=== PATIENT | female | born 1950 | race African-American/Black ===

== ENCOUNTER 2025-07-31 20:05 | Inpatient (IN) | payer OTHER, MEDICAID, MEDICARE ==
[~2025-07-31] VITALS: Ht 165.1 cm; Wt 104.8 kg
[2025-07-31 20:18] VITALS: O2SAT 95
[2025-07-31 21:15] LABS: BASOPHILS % 0.2 % (0.0-2.0); EOSINOPHILS % 0.4 % (0.0-5.0); HEMATOCRIT. 40.5 % (36.0-48.0); HEMOGLOBIN. 13.6 g/dL (12.0-16.0); LYMPHOCYTES % 11.3 % (20.0-50.0); MEAN PLATELET VOLUME 9.1 fl (7.4-10.4); MONOCYTES % 5.3 % (2.0-8.0); NEUTROPHILS % 82.8 % (40.0-76.0); PLATELET 233 x1000/uL (130-400); RED BLOOD CELL COUNT 4.44 mill/uL (4.2-5.4); RED CELL DISTRIBUTION WIDTH 14.2 % (11.6-14.6)
[2025-07-31 21:37] LABS: CREATININE 0.8 mg/dL (0.6-1.0); TROPONIN I HIGH SENSITIVITY < 4 ng/L (3.0-34); UREA NITROGEN BLOOD 14 mg/dL (9-23)
[2025-07-31 21:38] LABS: ASPARTATE AMINOTRANSFERASE 55 IU/L (<34)
[2025-07-31 21:39] LABS: BILIRUBIN DIRECT 0.2 mg/dL (<=3.0); BILIRUBIN TOTAL 0.7 mg/dL (0.1-1.0); PROTEIN TOTAL 7.6 g/dL (6.0-8.3)
[2025-07-31] MEDS: ONDANSETRON HCL 4MG/2ML INJ IV ONE (22:08)
[2025-07-31] MEDS: METOCLOPRAMIDE HCL 10MG/2ML VIAL IV ONE (22:08)
[2025-07-31] MEDS: MORPHINE SULFATE 4 MG/ML INJ (FOR IV/IM USE) IV ONE (22:08)
[2025-07-31] MEDS: SODIUM CHLORIDE 0.9% 1,000 ML IV ONE (22:11)
[2025-08-01 00:02] LABS: CLARITY URINE CLOUDY (CLEAR); COLOR URINE YELLOW (YELLOW); GLUCOSE URINE NEGATIVE (NEGATIVE); KETONES URINE TRACE (NEGATIVE); LEUKOCYTE ESTERASE URINE NEGATIVE (NEGATIVE); NITRITE URINE NEGATIVE (NEGATIVE); OCCULT BLOOD URINE NEGATIVE (NEGATIVE); PH URINE 6.0 (4.5-8.0); PROTEIN URINE NEGATIVE (NEGATIVE); SPECIFIC GRAVITY URINE 1.024 (1.005-1.030); UROBILINOGEN URINE 0.2 E.U./dL (0.2-1.0)
[2025-08-01] MEDS ORDERED: ATOR40TA70 PO (00:41)
[2025-08-01] MEDS ORDERED: HYDR12.54 PO (00:41)
[2025-08-01] MEDS ORDERED: CLONIDINE 0.1MG TABLET PO PRN (00:45)
[2025-08-01] MEDS ORDERED: ACETAMINOPHEN 325MG TABLET PO PRN (00:45)
[2025-08-01] MEDS ORDERED: ONDANSETRON HCL 4MG/2ML INJ IV PRN (00:45)
[2025-08-01] MEDS ORDERED: IPRATROPIUM/ALBUTEROL 0.5-3(2.5)MG/3ML NEB HHN PRN (00:45)
[2025-08-01] MEDS ORDERED: MORPHINE SULFATE 10 MG/ML INJ (NOT FOR IM USE) IV PRN (00:45)
[2025-08-01] MEDS ORDERED: MAGNESIUM/ALUMINUM HYDROXIDE/SIMETHICONE 30ML UDC PO PRN (00:45)
[2025-08-01] MEDS: ACETAMINOPHEN 500MG TABLET PO ONE (00:57)
[2025-08-01] MEDS ORDERED: NALOXONE HCL 0.4MG/ML VIAL IV PRN (01:00)
[2025-08-01 01:57] LABS: BACTERIA URINE 2+; SQUAMOUS EPITHELIAL CELL URINE 3+ /lpf (RARE/1+); WBC URINE 0-2 /hpf (0-2)
[2025-08-01 01:58] LABS: RBC URINE 0-2 /hpf (0-2)
[2025-08-01 03:18] VITALS: BP 133/58; PULSE 84; RESP 16; TEMP 36.5292
[2025-08-01 08:00] VITALS: BP 145/83; PULSE 80; RESP 18; TEMP 36.4; O2SAT 98
[2025-08-01] MEDS: ATORVASTATIN CALCIUM 40MG TABLET PO SCH (09:32)
[2025-08-01] MEDS: THIAMINE HCL 100MG TABLET PO SCH (09:32)
[2025-08-01] MEDS: ENOXAPARIN 30MG/0.3ML SYR SUBCUT SCH (09:33)
[2025-08-01 10:39] LABS: *AMPHETAMINES SCREEN URINE NEGATIVE (NEGATIVE); *BARBITURATES SCREEN URINE NEGATIVE (NEGATIVE); *BENZODIAZEPINES SCREEN URINE NEGATIVE (NEGATIVE); *COCAINE SCREEN URINE NEGATIVE (NEGATIVE); CANNABINOID URINE SCREEN NEGATIVE (NEGATIVE); METHADONE URINE SCREEN NEGATIVE (NEGATIVE); OPIATES URINE SCREEN PRESUMPTIVE POSITIVE (NEGATIVE); PHENCYCLIDINE URINE SCREEN NEGATIVE (NEGATIVE)
[2025-08-01 10:40] LABS: ECSTASY MDMA SCREEN URINE NEGATIVE (NEGATIVE)
[2025-08-01] MEDS: HYDROCHLOROTHIAZIDE 12.5MG CAPSULE PO SCH (11:35)
[2025-08-01 12:00] VITALS: BP 134/41; PULSE 80; RESP 18; TEMP 36.8; O2SAT 97
[2025-08-01 12:35] LABS: HEPATITIS C AB NON REACTIVE (Neg) (Negative)
[2025-08-01 16:00] VITALS: BP 140/49; PULSE 81; RESP 18; TEMP 36.2; O2SAT 98
[2025-08-01 17:47] LABS: BASOPHILS % 0.3 % (0.0-2.0); EOSINOPHILS % 1.2 % (0.0-5.0); HEMATOCRIT. 37.3 % (36.0-48.0); HEMOGLOBIN. 12.3 g/dL (12.0-16.0); LYMPHOCYTES % 22.2 % (20.0-50.0); MEAN PLATELET VOLUME 9.5 fl (7.4-10.4); MONOCYTES % 9.0 % (2.0-8.0); NEUTROPHILS % 67.3 % (40.0-76.0); PLATELET 205 x1000/uL (130-400); RED BLOOD CELL COUNT 4.05 mill/uL (4.2-5.4); RED CELL DISTRIBUTION WIDTH 14.6 % (11.6-14.6)
[2025-08-01 17:49] LABS: CREATININE 0.8 mg/dL (0.6-1.0); UREA NITROGEN BLOOD 8 mg/dL (9-23)
[2025-08-01 17:51] LABS: PHOSPHORUS 3.0 mg/dL (2.5-4.9)
[2025-08-01 20:00] VITALS: BP 117/50; PULSE 74; RESP 18; TEMP 36.7; O2SAT 100
[2025-08-02] VITALS (7 sets, daily range): BP systolic 120–146; BP diastolic 51–66; PULSE 66–90; RESP 16–19; TEMP 36.2–37; O2SAT 94–98
[2025-08-02] MEDS: POTASSIUM CHLORIDE 20MEQ TABLET SR PO NR ×2 (03:54→18:41)
[2025-08-02 05:33] LABS: CREATININE 0.7 mg/dL (0.6-1.0); UREA NITROGEN BLOOD 7 mg/dL (9-23)
[2025-08-02 05:35] LABS: PHOSPHORUS 2.9 mg/dL (2.5-4.9)
[2025-08-02 05:37] LABS: T4 FREE 1.44 ng/dL (0.89-1.76)
[2025-08-02] MEDS ORDERED: LOPERAMIDE 2MG/15ML UDC PO PRN (06:15)
[2025-08-02 06:28] LABS: BASOPHILS % 0.3 % (0.0-2.0); EOSINOPHILS % 1.6 % (0.0-5.0); HEMATOCRIT. 37.6 % (36.0-48.0); HEMOGLOBIN. 12.5 g/dL (12.0-16.0); LYMPHOCYTES % 27.8 % (20.0-50.0); MEAN PLATELET VOLUME 9.7 fl (7.4-10.4); MONOCYTES % 10.2 % (2.0-8.0); NEUTROPHILS % 60.1 % (40.0-76.0); PLATELET 208 x1000/uL (130-400); RED BLOOD CELL COUNT 4.13 mill/uL (4.2-5.4); RED CELL DISTRIBUTION WIDTH 14.7 % (11.6-14.6)
[2025-08-02] MEDS ORDERED: VANCOMYCIN 125MG/2.5ML ORAL SYR PO SCH (11:00)
[2025-08-02] MEDS: VANCOMYCIN 125MG/2.5ML ORAL SYR PO SCH (13:00)
[2025-08-02] MEDS: ACETAMINOPHEN 325MG TABLET PO PRN (21:15)
[2025-08-03] VITALS: BP 129/64; PULSE 89; RESP 16; TEMP 36.6; O2SAT 97
[2025-08-03 04:00] VITALS: BP 137/59; PULSE 78; RESP 16; TEMP 36.6; O2SAT 95
[2025-08-03 08:00] VITALS: BP 137/47; PULSE 79; RESP 16; TEMP 36.6; O2SAT 96
[2025-08-03] MEDS ORDERED: VANJ5 PO ×2 (08:40→11:48)
[2025-08-03] MEDS ORDERED: LOPE2CAP MT (08:41)
[2025-08-03 12:00] VITALS: BP 151/42; PULSE 77; RESP 16; TEMP 36.7; O2SAT 97
[2025-08-03 14:51] VITALS: BP 146/59; PULSE 76; RESP 17; TEMP 98
[2025-08-03 16:00] VITALS: BP 133/55; PULSE 75; RESP 16; TEMP 36.7; O2SAT 97
== END 2025-08-03 18:15 | disposition home or self-care (01) | DRG 373 ==
LOC: ER 20:05 → 7EST 08-01 00:33 → EDBEDREQTM 08-01 00:36 → EDBEDREQ 08-01 00:36 → EDBEDREQDT 08-01 00:36 → ENRESERV 08-01 01:22
PROVIDERS: ADMIT Internal Medicine; ATTEND Internal Medicine
DX: A04.72 Enterocolitis due to Clostridium difficile, not specified as recurrent (principal); E11.9 Type 2 diabetes mellitus without complications; I10 Essential (primary) hypertension; K76.0 Fatty (change of) liver, not elsewhere classified; E66.9 Obesity, unspecified; Z68.38 Body mass index [BMI] 38.0-38.9, adult; E78.00 Pure hypercholesterolemia, unspecified; E86.0 Dehydration; E87.6 Hypokalemia; R16.0 Hepatomegaly, not elsewhere classified; Z79.899 Other long term (current) drug therapy
CPT/HCPCS: 36415; 71045; 74176; 80048; 80076; 80305; 81003; 83036; 83735; 84100; 84439; 84443; 84484; 85025; 86705; 87015; 87045; 87177; 87209; 87340; 87427; 87449; 87493; 89055; 93005; 96361; 96374; 96375; 99285; J1650; J2270; J2405; J2765; J3373; J7030